=== PATIENT | male | born 1995 | race Caucasian/White ===

== ENCOUNTER 2019-02-27 22:36 | Emergency (ER) | payer MEDICAID, OTHER ==
[~2019-02-27] VITALS: Ht 175.3 cm; Wt 74.0 kg
[2019-02-27 23:02] LABS: BASOPHILS # (AUTO) 0.02 x10^3/uL (0-0.1); BASOPHILS % (AUTO) 0 % (0-1); EOSINOPHILS # (AUTO) 0.08 x10^3/uL (0-0.4); EOSINOPHILS % (AUTO) 1 % (1-7); LYMPHOCYTES % (AUTO) 21 % (22-44); MD NO; MEAN CORPUSCULAR HEMOGLOBIN 30.4 pg (27.5-34.5); MEAN CORPUSCULAR HGB CONC 33.4 g/dL (33.2-36.2); MEAN CORPUSCULAR VOLUME 90.9 fL (81-97); MONOCYTES # (AUTO) 0.59 x10^3/uL (0.2-0.8); MONOCYTES % (AUTO) 7 % (2-9); NEUTROPHILS # (AUTO) 5.78 x10^3/uL (1.8-6.8); NEUTROPHILS % (AUTO) 71 % (42-75); PLATELET COUNT 234 x10^3/uL (130-400); RED BLOOD COUNT 4.89 x10^6/uL (4.38-5.82); RED CELL DISTRIBUTION WIDTH 13.2 % (9.4-14.8)
[2019-02-27 23:11] LABS: ALBUMIN 4.1 g/dL (3.4-5.0); ANION GAP 6 mmol/L (5-15); CHLORIDE 106 mmol/L (98-107); CREATININE 0.93 mg/dL (0.7-1.3)
[2019-02-27 23:22] LABS: SALICYLATE LEVEL < 1.7 mg/dL (2.8-20.0)
[2019-02-27 23:35] LABS: AMPHETAMINE SCREEN, URINE Negative (Negative); BARBITURATE SCREEN, URINE Negative (Negative); BENZODIAZEPINE SCREEN, URINE Negative (Negative); CANNABINOID SCREEN, URINE Positive (Negative); COCAINE SCREEN, URINE Negative (Negative); METHADONE SCREEN, URINE Negative (Negative); OPIATE SCREEN, URINE Negative (Negative)
--- NOTE | 2019-02-27 23:36 | NUR ---
TELEPSYCH PAGED BY GAMEPLAY PROGRAMMER.
--- NOTE | 2019-02-27 23:50 | NUR ---
INTERSTATE BUS DRIVER GAVE REPORT TO TELEPSYCH WHO STATED HE WILL CONTACT PT NOW VIA TV MONITOR SYSTEM AND CALL RN BACK WITH PT CARE PLAN.
--- NOTE | 2019-02-28 00:40 | NUR ---
break rn: per soc, is recommending pt go home. is faxing report at this time.
[2019-02-28 01:11] VITALS: BP 126/67
== END 2019-02-28 01:13 | disposition home or self-care (01) ==
LOC: ED 22:51
DX: F43.20 Adjustment disorder, unspecified (principal); F41.1 Generalized anxiety disorder; F10.10 Alcohol abuse, uncomplicated; F31.9 Bipolar disorder, unspecified; F17.200 Nicotine dependence, unspecified, uncomplicated; F12.10 Cannabis abuse, uncomplicated; Y90.9 Presence of alcohol in blood, level not specified
CPT/HCPCS: 36415; 80048; 80307; 82040; 85025; 99284